=== PATIENT | male | born 1990 | race African-American/Black ===

== ENCOUNTER 2025-05-21 11:25 | Emergency (ER) | payer SELFPAY ==
[2025-05-21] MEDS: Amoxicillin/Clavulanate K 875-125 MG Tab PO ONE (12:39)
[2025-05-21] MEDS: Diphtheria,Pertussis(Acell),Tetanus Vaccine 0.5 ML Syringe IM ONE (12:39)
== END 2025-05-21 12:52 | disposition home or self-care (01) ==
LOC: MW.ED 11:25
DX: K02.9 Dental caries, unspecified (principal); Z91.013 Allergy to seafood; Z23 Encounter for immunization
CPT/HCPCS: 90471; 90715; 99282; A9270; 99283

== ENCOUNTER 2025-06-19 16:24 | Emergency (ER) | payer SELFPAY ==
[2025-06-19] MEDS: Ketorolac 30 MG/ML SDV IM ONE (18:13)
[2025-06-19] MEDS: Orphenadrine 60 MG/2 ML Inj IM ONE (18:13)
== END 2025-06-19 19:22 | disposition home or self-care (01) ==
LOC: MW.ED 16:24
DX: R07.9 Chest pain, unspecified (principal); Z91.013 Allergy to seafood
CPT/HCPCS: 71046; 99284; A9270; 99283

== ENCOUNTER 2025-07-02 08:12 | Emergency (ER) | payer OTHER | END 2025-07-02 08:34 | disposition home or self-care (01) | LOC: MW.ED 08:12 | DX: K08.89 Other specified disorders of teeth and supporting structures (principal); R22.0 Localized swelling, mass and lump, head; Z91.013 Allergy to seafood; Z79.899 Other long term (current) drug therapy | CPT/HCPCS: 99283 ==

== ENCOUNTER 2025-07-09 05:39 | Emergency (ER) | payer OTHER ==
[2025-07-09] MEDS: Acetaminophen/HYDROcodone 325-5 MG Tab PO ONE (07:12)
[2025-07-09] MEDS: Amoxicillin/Clavulanate K 875-125 MG Tab PO ONE (07:12)
== END 2025-07-09 07:44 | disposition home or self-care (01) ==
LOC: MW.ED 05:39
DX: K08.89 Other specified disorders of teeth and supporting structures (principal); Z91.013 Allergy to seafood
CPT/HCPCS: 99282; A9270; 99283